=== PATIENT | male | born 1985 | race American Indian/Alaskan Native ===

== ENCOUNTER 2018-08-25 20:19 | Emergency (ER) | payer SELFPAY ==
--- NOTE | 2018-08-25 20:24 | Emergency Department Report ---
Blank Doc - Documentation Documentation: This is a 33-year-old male that presents with left knee lac after using a chain saw. This initial assessment/diagnostic orders/clinical plan/treatment(s) is/are subject to change based on patient's health status, clinical progression and re- assessment by fellow clinical providers in the ED. Further treatment and workup at subsequent clinical providers discretion. Patient/guardians urged not to elope from the ED as their condition may be serious if not clinically assessed and managed. Initial orders include: 1- Patient sent to [facility] for further evaluation and treatment 2- xray
--- NOTE | 2018-08-25 21:57 | XRay Report ---
. LEFT KNEE 3 VIEWS INDICATION / CLINICAL INFORMATION: knee lac. COMPARISON: None available. FINDINGS: No fracture or other acute skeletal abnormality. No radiopaque foreign body. Signer Name: Ti Womack MD Signed: 08/25/2018 9:53 PM Workstation Name: [id number]
[2018-08-25] MEDS ORDERED: PERCOCET 5/325 PO STA (22:47)
[2018-08-25] MEDS ORDERED: BOOSTRIX IM ONE (22:47)
[2018-08-25] MEDS ORDERED: AUGMENTIN 875 MG PO STA (22:48)
[2018-08-25] MEDS ORDERED: XYLOCAINE 2% INFILTRATI STA (22:48)
[2018-08-25] MEDS ORDERED: NACL 0.9% IR ONE (23:26)
[2018-08-25] MEDS ORDERED: NACL 0.9% 500 ML IR ONE (23:26)
[2018-08-25 23:56] VITALS: BP 104/67
--- NOTE | 2018-08-26 00:17 | Emergency Department Report ---
ED Laceration HPI - HPI Chief Complaint: Wound/Laceration Stated Complaint: LEFT KNEE INJURY Time Seen by Provider: 08/25/18 20:23 Occurred When: Today Location: Lower Extremity Severity: moderate Tetanus Status: Unknown Laceration Symptoms: Yes Pain, No Foreign Body Sensation, No Numbness, No Weakness Other History: 33-year-old [place] male was sent suggests [facility] department complaining of left knee pain which sustained some incident. Changes of loss control striking his left Turn through his jeans assaulting and blood mutilation of his knee region. Portion dull throbbing pain was present with with with flexion and extension of the knee and weightbearing. ED Review of Systems ROS: Stated complaint: LEFT KNEE INJURY Other details as noted in HPI Comment: All other systems reviewed and negative ED Past Medical Hx - Social History Smoking Status: Current Some Day Smoker - Medications Home Medications: Home Medications Medication Instructions Recorded Confirmed Last Taken Type Chlorhexidine Gluconate [Hibiclens] 10 ml TP BID #240 liquid 08/26/18 Unknown Rx cephALEXin [Keflex] 500 mg PO Q6HR #40 capsule 08/26/18 Unknown Rx Laceration Physical Exam - Exam General: Vital signs noted. No distress. Alert and acting appropriately. Wound Length (cm): 7 Laceration Location: Lower Extremity Full Body Front + Back: 1 - Laceration site some linear laceration Makin M like fashion measuring about 7 cm Laceration Exam: Yes Normal Distal CMS, No Foreign Body, No Exposed Tendon, Vessel, or Nerve, No Tendon Injury ED Course Vital Signs 08/25/18 08/25/18 08/25/18 20:29 22:12 23:05 Temperature 98.1 F 97.5 F L Pulse Rate 86 64 Respiratory 18 14 16 Rate Blood Pressure 102/60 [Left] O2 Sat by Pulse 99 99 Oximetry 08/25/18 08/25/18 23:30 23:55 Temperature 98.1 F 98.1 F Pulse Rate 54 L 60 Respiratory 14 14 Rate Blood Pressure 90/60 104/67 [Left] O2 Sat by Pulse 98 98 Oximetry - Procedure Description Procedures done: Left knee was prepped and draped in sterile fashion anesthesia was achieved with 2% lidocaine with no epinephrine. 6 mL of lidocaine were used. Wound was irrigated with copious saline. No foreign bodies appreciated. Wound was closed with [address] in simple interrupted fashion 3. Residua l issues including him having a vasovagal response during the repair Critical care attestation.: If time is entered above; I have spent that time in minutes in the direct care of this critically ill patient, excluding procedure time. ED Disposition Clinical Impression: Laceration of knee, left, Contact with chainsaw as cause of accidental injury Disposition: [id number] TO HOME OR SELFCARE Is pt being admited?: No Does the pt Need Aspirin: No Condition: Stable Instructions: Suture Care (ED), Laceration (ED) Prescriptions: Chlorhexidine Gluconate [Hibiclens] 10 ml TP BID #240 liquid cephALEXin [Keflex] 500 mg PO Q6HR #40 capsule Referrals: KLEVER DIEGO MD [Primary Care Provider] - 3-5 Days
== END 2018-08-26 00:34 | disposition home or self-care (01) ==
LOC: ED 20:19
DX: S81.012A Laceration without foreign body, left knee, initial encounter (principal); F17.200 Nicotine dependence, unspecified, uncomplicated; W26.8XXA Contact with other sharp object(s), not elsewhere classified, initial encounter; Y93.89 Activity, other specified; Y92.89 Other specified places as the place of occurrence of the external cause; Y99.8 Other external cause status
CPT/HCPCS: 90471; 90715